=== PATIENT | female | born 1985 | race Caucasian/White ===

== ENCOUNTER 2019-08-03 11:56 | Emergency (ER) | payer OTHER ==
[~2019-08-03] VITALS: Ht 154.9 cm; Wt 43.2 kg
[~2019-08-03 11:56] MED LIST: MIDO2.5T PO
[2019-08-03] MEDS ORDERED: KETOROLAC 30 MG/ML VIAL. IM ONE (12:45)
--- NOTE | 2019-08-03 12:47 | PHYS DOC ---
Past History Past Medical History: Hypothyroid, Other Additional Past Medical Histor: SMA syndrome Past Surgical History: Cholecystectomy, , Other Smoking: Cigarettes Alcohol Use: None Drug Use: Marijuana, Other Adult General Chief Complaint Chief Complaint: RIB PAIN HPI HPI Patient is a 34-year-old female who presents to the ED with right-sided rib and shoulder/superior back pain secondary to a mechanical fall. She stated that on July 29 she fell on ice on her right side. Since that time he has had a sharp pain with activity and deep breathing. She had been treating her symptoms with [id number] Tylenol and Aleve with no improvement. She admits decreased range of motion of her right shoulder secondary to pain. She denies chest pain, shortness of breath, or fever/chills. She states that at rest the pain as a 4 out of 10, but with activity or deep breathing at its worse 8 out of 10. Review of Systems Review of Systems Constitutional: Denies fever or chills Respiratory: Denies cough or shortness of breath Cardiovascular: Reports right lateral/posterior chest wall pain ; denies palpitations Musculoskeletal: Admits right sided superior back pain, admits right shoulder pain Neurologic: Denies headache, focal weakness or sensory changes Complete systems were reviewed and found to be within normal limits, except as documented in this note. Family History Family History No pertinent family history Current Medications Current Medications Current Medications Medications (Trade) Dose Ordered Sig/Kristen Start Time Stop Time Status Last Admin Dose Admin Ketorolac Tromethamine (Toradol 30mg Vial) 30 mg 1X ONCE 08/03/19 12:45 08/03/19 12:46 Allergies Allergies Allergies Coded Allergies Type Severity Reaction Last Updated Verified Penicillins Allergy Severe RASH 10/05/14 Yes zolpidem Allergy Severe 10/05/14 No morphine Adverse Reaction Intermediate ITCH 10/05/14 Yes Physical Exam Physical Exam Constitutional: Well developed, well nourished, no acute distress, uncomfortable appearance HENT: Normocephalic, atraumatic, oropharynx moist Eyes: PERRL, EOMI, conjunctiva normal, no discharge Neck: Normal range of motion, no midline tenderness, supple Cardiovascular: Heart rate normal, regular rhythm Lungs & Thorax: Bilateral breath sounds clear to auscultation, no wheezing Abdomen: Soft, no tenderness; pelvis stable and nontender Skin: Warm, dry, no erythema, no rash Back: Right sided periscapular/rib tenderness to palpation, no CVA pain Extremities: No tenderness, decreased range of motion of right shoulder secondary to pain, no edema Neurologic: Alert and oriented, normal motor function, normal sensory function, no focal deficits noted Psychologic: Affect normal, judgment normal EKG EKG [] Radiology/Procedures Radiology/Procedures PROCEDURE: RIBS RIGHT AND PA CHEST EXAM: Chest and right ribs, 4 views. HISTORY: Fall. Pain. COMPARISON: 10/05/2014 FINDINGS: A frontal view of the chest and 3 views of the right ribs are obtained. There is no infiltrate, protrusion or pneumothorax. The heart is normal in size. No rib fracture is seen. IMPRESSION: No acute pulmonary or osseous finding. Electronically signed by: Luz Turner MD (08/03/2019 12:45 PM) [facility] [place] Course & Med Decision Making Course & Med Decision Making Pertinent Imaging studies reviewed. (See chart for details) 34-year-old female presents to the ED following a mechanical fall on July 16. She states that she slipped on ice and fell on her right side and shoulder. She now has right sided sharp pain of her ribs and periscapular area. She states that deep breathing worsens the pain. She has been taking Aleve and Tylenol at home without improvement of the symptoms. She rates her pain as a 4 out of 10 at rest and a 8 out of 10 with deep breathing and activity. In the ED she was worked up for acute rib fracture versus rib contusion. A right sided rib and PA chest x-ray showed no fractures. Rib pain secondary to probable rib contusion. Patient was given a prescription for Tonalea for pain, Norflex for muscle strain, and incentive spirometry and educated to use for at least 3 days 4 times daily for 10 breaths. Patient was encouraged to ice area. Patient stable for discharge with outpatient follow-up with PCP. Discussed findings and plan with patient and family, who acknowledge understanding and agreement. Dragon Disclaimer Dragon Disclaimer This electronic medical record was generated, in whole or in part, using a voice recognition dictation system. Departure Departure: Impression: Primary Impression: Fall Additional Impression: Rib contusion Disposition: HOME, SELF-CARE Condition: STABLE Referrals: MORIS CHEN MD (PCP) Patient Instructions: Blunt Chest Trauma, Incentive Spirometer Scripts Hydrocodone Bit/Acetaminophen (NORCO 5-325 TABLET) 1 Each Tablet 0.5-1 TAB PO Q6HRS PRN for PAIN, #10 TAB Prov: LENA DRIVER DO 08/03/19 Orphenadrine Citrate (ORPHENADRINE CITRATE) 100 Mg Tablet.er 1 TAB PO BID PRN for MUSCLE PAIN, #14 TAB 0 Refills Prov: LENA DRIVER DO 08/03/19 Problem Qualifiers Primary Impression: Fall Encounter type: initial encounter Qualified Codes: W19.XXXA - Unspecified fall, initial encounter Additional Impression: Rib contusion Encounter type: initial encounter Laterality: right Qualified Codes: S20.211A - Contusion of right front wall of thorax, initial encounter LENA DRIVER DO Aug 03, 2019 12:47
[2019-08-03] MEDS ORDERED: HYDROcodone/APAP 5/325MG 1 TAB TABLET PO ONE (13:00)
[2019-08-03] MEDS ORDERED: ORPH-16 PO (13:02)
[2019-08-03] MEDS ORDERED: HYDR-3165 PO (13:02)
[2019-08-03 13:30] VITALS: BP 101/58
== END 2019-08-03 13:30 | disposition home or self-care (01) ==
LOC: ER 11:56
DX: S20.211A Contusion of right front wall of thorax, initial encounter (principal); E03.9 Hypothyroidism, unspecified; F17.210 Nicotine dependence, cigarettes, uncomplicated; Z90.49 Acquired absence of other specified parts of digestive tract; Z88.0 Allergy status to penicillin; Z88.8 Allergy status to other drugs, medicaments and biological substances; Z88.5 Allergy status to narcotic agent; W00.0XXA Fall on same level due to ice and snow, initial encounter; Y93.89 Activity, other specified; Y92.89 Other specified places as the place of occurrence of the external cause; Y99.8 Other external cause status
CPT/HCPCS: 71101; 99283

== ENCOUNTER 2020-09-09 16:15 | Emergency (ER) | payer OTHER ==
[~2020-09-09] VITALS: Ht 154.9 cm; Wt 43.2 kg
[~2020-09-09 16:15] MED LIST changes: +HYDR-3165 PO; +ORPH-16 PO
[2020-09-09 17:29] LABS: BASO # 0.1 x10^3/uL (0.0-0.2); BASO % 1 % (0-3); CALCIUM 8.7 mg/dL (8.5-10.1); CREATININE 0.8 mg/dL (0.6-1.0); EOS # 0.3 x10^3/uL (0.0-0.7); EOS % 3 % (0-3); GFR 82.1; HEMATOCRIT 37.5 % (36.0-47.0); HEMOGLOBIN 12.1 g/dL (12.0-15.5); LYMPH # 2.2 x10^3/uL (1.0-4.8); LYMPH % 22 % (24-48); MEAN CORPUSCULAR HEMOGLOBIN 28 pg (25-35); MEAN CORPUSCULAR HGB CONC 32 g/dL (31-37); MEAN CORPUSCULAR VOLUME 87 fL (79-100); MONO # 0.6 x10^3/uL (0.0-1.1); MONO % 6 % (0-9); NEUT # 6.9 x10^3uL (1.8-7.7); NEUT % 69 % (31-73); PLATELET COUNT 327 x10^3/uL (140-400); POTASSIUM 3.6 mmol/L (3.5-5.1); RED BLOOD COUNT 4.29 x10^6/uL (3.50-5.40); RED CELL DISTRIBUTION WIDTH 14.6 % (11.5-14.5)
--- NOTE | 2020-09-09 17:44 | PHYS DOC ---
Past History Past Medical History: Asthma, Hypothyroid, Other Additional Past Medical Histor: SMA syndrome, SMALL STOMACH SYNDROME (MAHIN LAST DO) Past Surgical History: Cholecystectomy, , Other Additional Past Surgical Histo: ABD SX (MAHIN LAST DO) Smoking: Cigarettes Alcohol Use: None Drug Use: Marijuana, Other (MAHIN LAST DO) General Adult EDM: Chief Complaint: MENSTRUAL PAIN/CRAMPS HPI: HPI: Patient is a [age] year old [sex] who presents with [] (MAHIN LAST DO) Review of Systems: Review of Systems: Constitutional: Denies fever or chills Eyes: Denies change in visual acuity HENT: Denies nasal congestion or sore throat Respiratory: Denies cough or shortness of breath Cardiovascular: Denies chest pain or edema GI: Denies abdominal pain, nausea, vomiting, bloody stools or diarrhea : Denies dysuria Musculoskeletal: Denies back pain or joint pain Integument: Denies rash Neurologic: Denies headache, focal weakness or sensory changes Endocrine: Denies polyuria or polydipsia Lymphatic: Denies swollen glands Psychiatric: Denies depression or anxiety (MAHIN LAST DO) Allergies: Allergies: Allergies Coded Allergies Type Severity Reaction Last Updated Verified Penicillins Allergy Severe RASH 10/05/14 Yes zolpidem Allergy Severe 10/05/14 No acetaminophen Allergy Unknown 08/04/19 Yes hydromorphone Allergy Unknown 08/04/19 Yes oxycodone Allergy Unknown 08/04/19 Yes morphine Adverse Reaction Intermediate ITCH 10/05/14 Yes (MAHIN LAST DO) Physical Exam: PE: Constitutional: Well developed, well nourished, no acute distress, non-toxic appearance. HENT: Normocephalic, atraumatic, Eyes: EOMI, conjunctiva normal, no discharge. Neck: Normal range of motion, supple, Cardiovascular: S1/2 present, regular rhythm Lungs & Thorax: Speaking in full sentences, bilateral equal chest rise, no tachypnea or increased work of breathing Abdomen: soft, no tenderness, Skin: Warm, dry, no erythema, no rash. [] Back: No tenderness, no CVA tenderness. [] Extremities: No tenderness, no cyanosis, no lower extremity edema Neurologic: Alert and oriented X 3, normal motor function, normal sensory function, no focal deficits noted. [] Psychologic: Affect normal, judgement normal, mood normal. [] ([facility],MAHIN Martinez DO) Current Patient Data: Labs: Laboratory Tests Test 09/09/20 16:53 White Blood Count 10.0 x10^3/uL (4.0-11.0) Red Blood Count 4.29 x10^6/uL (3.50-5.40) Hemoglobin 12.1 g/dL (12.0-15.5) Hematocrit 37.5 % (36.0-47.0) Mean Corpuscular Volume 87 fL (79-100) Mean Corpuscular Hemoglobin 28 pg (25-35) Mean Corpuscular Hemoglobin Concent 32 g/dL (31-37) Red Cell Distribution Width 14.6 % (11.5-14.5) H Platelet Count 327 x10^3/uL (140-400) Neutrophils (%) (Auto) 69 % (31-73) Lymphocytes (%) (Auto) 22 % (24-48) L Monocytes (%) (Auto) 6 % (0-9) Eosinophils (%) (Auto) 3 % (0-3) Basophils (%) (Auto) 1 % (0-3) Neutrophils # (Auto) 6.9 x10^3uL (1.8-7.7) Lymphocytes # (Auto) 2.2 x10^3/uL (1.0-4.8) Monocytes # (Auto) 0.6 x10^3/uL (0.0-1.1) Eosinophils # (Auto) 0.3 x10^3/uL (0.0-0.7) Basophils # (Auto) 0.1 x10^3/uL (0.0-0.2) Prothrombin Time 10.6 SEC (9.4-11.4) Prothrombin Time INR 1.0 (0.9-1.1) Activated Partial Thromboplast Time 26 SEC (23-33) Sodium Level 144 mmol/L (136-145) Potassium Level 3.6 mmol/L (3.5-5.1) Chloride Level 106 mmol/L (98-107) Carbon Dioxide Level 30 mmol/L (21-32) Anion Gap 8 (6-14) Blood Urea Nitrogen 15 mg/dL (7-20) Creatinine 0.8 mg/dL (0.6-1.0) Estimated GFR (Cockcroft-Gault) 82.1 Glucose Level 107 mg/dL (70-99) H Calcium Level 8.7 mg/dL (8.5-10.1) Vital Signs: Vital Signs Date Time Temp Pulse Resp B/P (MAP) Pulse Ox O2 Delivery O2 Flow Rate FiO2 09/09/20 16:37 98.5 90 16 106/58 (74) 100 Room Air (MAHIN LAST DO) EKG: EKG: [] (MAHIN LAST DO) Radiology/Procedures: Radiology/Procedures: [] (MAHIN LAST DO) Radiology/Procedures: Exam: Ultrasound pelvis Indication: Menorrhagia Technique: Real-time grayscale and color Doppler images of the pelvis were obtained by the department case repairer. Comparisons: None FINDINGS: Uterus measures 8.7 x 4.3 x 3.7 cm. Endometrium is 1 cm. Right ovary measures 2.9 x 1.6 x 1.4 cm. Left ovary measures 3.8 x 2.3 x 2.0 cm. There is a cyst in the left ovary measuring up to 1 cm. Vascular flow identified the ovaries bilaterally. Trace free fluid in pelvis. IMPRESSION: 1. Endometrium measures 1 cm in thickness which is within the normal limits for a premenopausal female. 2. Otherwise, normal sonographic appearance of the uterus and ovaries. 3. Trace free fluid in the cul-de-sac, may be physiologic. Electronically signed by: Ino Olivera MD (09/09/2020 7:24 PM) [facility] (JOSH CHACON MD) Heart Score: Risk Factors: Risk Factors: DM, Current or recent (<one month) smoker, HTN, HLP, family history of CAD, obesity. Risk Scores: Score 0 - 3: 2.5% MACE over next 6 weeks - Discharge Home Score 4 - 6: 20.3% MACE over next 6 weeks - Admit for Clinical Observation Score 7 - 10: 72.7% MACE over next 6 weeks - Early Invasive Strategies (MAHIN LAST DO) C/O Chest Pain: No (JOSH CHACON MD) Course & Med Decision Making: Course & Med Decision Making Pertinent Labs and Imaging studies reviewed. (See chart for details) [] (MAHIN LAST DO) Course & Med Decision Making Patient care taken over from day team. Laboratory analysis not concerning. Ultrasound not concerning. Vital signs normal. Discussed all findings with patient, who felt safe to discharge home and follow-up with primary care physician. Advised to follow-up first thing tomorrow. Gave return precautions to the ED. Patient grateful, verbalized understanding and agreed to plan of discharge. (JOSH CHACON MD) Dragon Disclaimer: Dragon Disclaimer: This electronic medical record was generated, in whole or in part, using a voice recognition dictation system. (MAHIN LAST DO) Departure Departure: Impression: Primary Impression: Vaginal bleeding Disposition: 01 DC HOME SELF CARE/HOMELESS Condition: GOOD Referrals: MORIS CHEN MD (PCP) Patient Instructions: Uterine Bleeding, Dysfunctional Additional Instructions: Please read all the attached information. Your laboratory analysis today was reassuring. Your ultrasound was also reassuring. Please call your primary care physician or ME[employer] [facility]ER first thing in the morning to discuss your ED visit and set up a follow-up appointment this week. Please come back to the emergency department immediately with new or concerning symptoms as discussed. MAHIN LAST DO Sep 09, 2020 17:44 JOSH CHACON MD Sep 09, 2020 19:48
[2020-09-09] MEDS ORDERED: diazePAM 5 MG TABLET. PO ONE (18:00)
[2020-09-09 18:16] LABS: BILIRUBIN,URINE NEG (NEG); CLARITY,URINE CLEAR; COLOR,URINE YELLOW; GLUCOSE,URINE NEG (NEG); NITRITE,URINE NEG (NEG); UROBILINOGEN,URINE 0.2 mg/dL (0.2 mg/dL)
[2020-09-09 18:17] LABS: BACTERIA,URINE MOD /HPF (0-FEW); SQUAMOUS EPITHELIAL CELL,UR FEW /LPF
--- NOTE | 2020-09-09 19:26 | RAD ---
Exam: Ultrasound pelvis Indication: Menorrhagia Technique: Real-time grayscale and color Doppler images of the pelvis were obtained by the department video games storywriter. Comparisons: None FINDINGS: Uterus measures 8.7 x 4.3 x 3.7 cm. Endometrium is 1 cm. Right ovary measures 2.9 x 1.6 x 1.4 cm. Left ovary measures 3.8 x 2.3 x 2.0 cm. There is a cyst in the left ovary measuring up to 1 cm. Vascular flow identified the ovaries bilaterally. Trace free fluid in pelvis. IMPRESSION: 1. Endometrium measures 1 cm in thickness which is within the normal limits for a premenopausal fema le. 2. Otherwise, normal sonographic appearance of the uterus and ovaries. 3. Trace free fluid in the cul-de-sac, may be physiologic. Electronically signed by: Ino Olivera MD (09/09/2020 7:24 PM) [facility]
[2020-09-09 20:03] VITALS: BP 105/68
== END 2020-09-09 20:03 | disposition home or self-care (01) ==
LOC: ER 16:15
DX: N93.8 Other specified abnormal uterine and vaginal bleeding (principal); J45.909 Unspecified asthma, uncomplicated; E03.9 Hypothyroidism, unspecified; F17.210 Nicotine dependence, cigarettes, uncomplicated; Z88.0 Allergy status to penicillin; Z88.5 Allergy status to narcotic agent; Z88.8 Allergy status to other drugs, medicaments and biological substances
CPT/HCPCS: 36415; 76830; 76856; 80048; 81001; 81025; 85025; 85610; 85730; 87086; 99284

== ENCOUNTER 2021-10-14 18:29 | Emergency (ER) | payer OTHER ==
[~2021-10-14] VITALS: Ht 154.9 cm; Wt 49.4 kg
[2021-10-14] MEDS ORDERED: IBUPROFEN 600 MG TABLET. PO ONE (19:00)
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
[2021-10-14 20:39] VITALS: BP 106/56
== END 2021-10-14 20:40 | disposition home or self-care (01) ==
LOC: ER 18:33
DX: S50.01XA Contusion of right elbow, initial encounter (principal); S60.211A Contusion of right wrist, initial encounter; J45.909 Unspecified asthma, uncomplicated; E03.9 Hypothyroidism, unspecified; F17.210 Nicotine dependence, cigarettes, uncomplicated; Z88.0 Allergy status to penicillin; Z88.5 Allergy status to narcotic agent; Z88.8 Allergy status to other drugs, medicaments and biological substances; W05.1XXA Fall from non-moving nonmotorized scooter, initial encounter; Y93.89 Activity, other specified; Y92.89 Other specified places as the place of occurrence of the external cause; Y99.8 Other external cause status
CPT/HCPCS: 73080; 73090; 73130; 99284